=== PATIENT | male | born 1935 | race Caucasian/White ===

== ENCOUNTER 2016-05-29 10:29 | Emergency (ER) | payer MEDICARE, OTHER ==
[2016-05-29 11:06] VITALS: BP 152/67
--- NOTE | 2016-05-29 11:55 | UC ---
Nitza Bourne Anna, [facility] on 05/29/16 at 1126 . Complaint Male HPI - HPI Summary HPI Summary: MD Note Vital signs stable. Temperature 97.8 Pulse ox 98. Nondrinker. Nonsmoker. Double bypass 2004, melanoma. HTN. Type II DM. Atrial fibrillation. No allergies. Nurses Note pt c/o constipation, he cannot remember when his last BM was. pt took fleets enema this morning x1 with no results. pt denies taking OTC oral medications In Room Note Patient is an 80 y/o male coming to [facility] [place] with gradual onset of constant CONSTIPATION that began at least three days ago. At [facility] [place], he had a BM. It was not painful after it had started. It was watery and diarrhea-like to begin, then was normal with small specks of blood. Four nights ago, he had some diarrhea. He denies abdominal pain or other related symptoms. He has had constipation once before. A few hours after the enema, he had a BM. He normally has a BM every two days. His last saw his doctor 2.5 weeks ago for a normal check up. Onset: three days ago Palliative/Provocative: constipation Quality: ongoing Region: digestive system Severity: moderate Time: constant Associated Sx: None Home Rx: Fleets enema - History of Current Complaint Chief Complaint: UCAbdominalPain Stated Complaint: CONSTIPATION Time Seen by Provider: 05/29/16 11:10 Hx Obtained From: Patient Onset/Duration: Gradual Onset, Resolved - at [facility] [place] Timing: Constant, Lasting Days Severity Initially: Moderate Associated Signs And Symptoms: Positive: Constipation, Blood in Stool - Allergies/Home Medications Allergies/Adverse Reactions: Allergies Allergy/AdvReac Type Severity Reaction Status Date / Time No Known Allergies Allergy Verified 05/29/16 11:06 Home Medications: Home Medications metFORMIN* [Glucophage*] 1,000 mg PO BID 05/29/16 [History Confirmed 05/29/16] PMH/Surg Hx/FS Hx/Imm Hx Endocrine History Of: Reports: Diabetes - II Denies: Thyroid Disease Cardiovascular History Of: Reports: Cardiac Disorders - DOUBLE BYPASS 2004, Hypertension, Atrial Fibrillation Denies: Pacemaker/ICD, Myocardial Infarction Respiratory History Of: Denies: COPD, Asthma GI/ History Of: Denies: Ulcer - Surgical History Surgical History: Yes Surgery Procedure, Year, and Place: DOUBLE BYPASS 2004, MELANOMA AND LYMPH NODES REMOVED 1968, - Family History Known Family History: Positive: Cardiac Disease, Hypertension, Diabetes - Social History Occupation: Retired Lives: With Family Alcohol Use: Rare Substance Use Type: None Smoking Status (MU): Never Smoked Tobacco - Immunization History Most Recent Influenza Vaccination: fall 2015 Vaccination Up to Date: Yes Review of Systems Constitutional: Negative Skin: Negative Eyes: Negative ENT: Negative Respiratory: Negative Cardiovascular: Negative Gastrointestinal: Other - Constipation, now resolved. Some blood in stool at [facility] [place]. Genitourinary: Negative Motor: Negative Neurovascular: Negative Musculoskeletal: Negative Neurological: Negative Psychological: Negative All Other Systems Reviewed And Are Negative: Yes Physical Exam Triage Information Reviewed: Yes Appearance: Well-Appearing, No Pain Distress, Well-Nourished Vital Signs: Initial Vital Signs Temp 97.8 F 05/29/16 11:02 Pulse 67 05/29/16 11:02 Resp 20 05/29/16 11:02 BP 152/67 05/29/16 11:02 Pulse Ox 98 05/29/16 11:02 Vital Signs Reviewed: Yes Eyes: Positive: Conjunctiva Clear ENT: Positive: Hearing grossly normal, Pharynx normal, TMs normal. Negative: Muffled/hoarse voice Neck: Positive: Supple, No Lymphadenopathy Respiratory: Positive: Chest non-tender, Lungs clear, Normal breath sounds, No respiratory distress Cardiovascular: Positive: RRR, No Murmur Abdomen Description: Positive: Nontender - No tenderness at [place], [place] , or LLQ. Negative CVA tenderness., No Organomegaly, Soft Bowel Sounds: Positive: Present Musculoskeletal: Positive: Strength Intact, Other: - SAENZ Neurological: Positive: Alert Psychological: Positive: Age Appropriate Behavior Skin: Negative: rashes Complaint Male Course/Dx - Course Course Of Treatment: Discussed with pt and his current condition. Pt had a large BM while waiting and has absolutely no abd pain. I will give him instructions with respect to fluids, laxatives, fiber, and follow up. Pt understands and voiced understanding and agreement. - Differential Dx/Diagnosis Provider Diagnoses: constipation, resolved Discharge - Discharge Plan Condition: Stable Disposition: HOME Patient Education Materials: Constipation (ED), High Fiber Diet (ED) Referrals: Ghanshyam Alston MD [Primary Care Provider] - Additional Instructions: WE DISCUSSED: CONSTIPATION: Constipation is a common problem. It is especially likely as you get older. Constipation is a common cause of abdominal pain, but sometimes causes no symptoms at all. Causes of constipation include certain medications, dehydration, diets, inactivity, and low-fiber intake. Rarely, it can be a symptom of underlying disease. you can add fiber such as Metamucil, or a laxative, such as Miralax, and a stool softener such as Colace, if this happens again. Re-check at any time for repeat episode or abdominal pain or fever. The documentation as recorded by the Nitza watson Anna accurately reflects the service I personally performed and the decisions made by me, Harpal Ferraro MD.
== END 2016-05-29 11:58 | disposition home or self-care (01) ==
LOC: UCEAST 10:29
DX: K59.00 Constipation, unspecified (principal); E11.9 Type 2 diabetes mellitus without complications; Z79.84 Long term (current) use of oral hypoglycemic drugs; Z95.1 Presence of aortocoronary bypass graft
CPT/HCPCS: 99211; G0463

== ENCOUNTER 2016-12-17 10:22 | Emergency (ER) | payer MEDICARE, BC, OTHER ==
[2016-12-17 10:52] VITALS: BP 138/76
--- NOTE | 2016-12-17 10:53 | UC ---
Respiratory Complaint HPI - HPI Summary HPI Summary: 81 YEAR OLD MALE PRESENTS WITH COMPLAINS OF COUGH, POST NASAL DRIP , AND CHEST CONGESTION. - History of Current Complaint Chief Complaint: UCGeneralIllness Stated Complaint: URI Time Seen by Provider: 12/17/16 10:51 Hx Obtained From: Patient Onset/Duration: Lasting Days Severity Initially: Moderate Severity Currently: Moderate Pain Scale Used: 0-10 Numeric - 5 Character: Cough: Productive Associated Signs And Symptoms: Positive: Wheezing - Allergies/Home Medications Allergies/Adverse Reactions: Allergies Allergy/AdvReac Type Severity Reaction Status Date / Time No Known Allergies Allergy Verified 12/17/16 10:36 Home Medications: Home Medications Carbidopa-Levodopa [Carbidopa/Levodopa] 1 tab PO TID PC 12/17/16 [History Confirmed 12/17/16] PMH/Surg Hx/FS Hx/Imm Hx Previously Healthy: Yes - Surgical History Surgical History: Yes Surgery Procedure, Year, and Place: DOUBLE BYPASS 2004, MELANOMA AND LYMPH NODES REMOVED 1968, - Family History Known Family History: Positive: Cardiac Disease, Hypertension, Diabetes - Social History Alcohol Use: Occasionally Substance Use Type: None Smoking Status (MU): Never Smoked Tobacco - Immunization History Most Recent Influenza Vaccination: fall 2015 Vaccination Up to Date: Yes Review of Systems Constitutional: Negative Skin: Negative Eyes: Negative ENT: Negative Respiratory: Cough Cardiovascular: Negative Gastrointestinal: Negative Genitourinary: Negative Motor: Negative Neurovascular: Negative Musculoskeletal: Negative Neurological: Negative Psychological: Negative All Other Systems Reviewed And Are Negative: Yes Physical Exam Triage Information Reviewed: Yes Vital Signs: Initial Vital Signs Temp 36.6 C 12/17/16 10:32 Pulse 59 12/17/16 10:32 Resp 16 12/17/16 10:32 BP 138/76 12/17/16 10:32 Pulse Ox 98 12/17/16 10:32 Eye Exam: Normal ENT: Positive: Nasal congestion, Nasal drainage Dental Exam: Normal Neck exam: Normal Neck: Positive: 1 Respiratory: Positive: Wheezing Cardiovascular Exam: Normal Abdominal Exam: Normal Musculoskeletal Exam: Normal Neurological Exam: Normal Psychological Exam: Normal Skin Exam: Normal UC Diagnostic Evaluation - Laboratory O2 Sat by Pulse Oximetry: 98 Respiratory Course/Dx - Differential Dx/Diagnosis Provider Diagnoses: COUGH. NASAL CONGESTION. CHEST CONGESTION Discharge - Discharge Plan Condition: Stable Disposition: HOME Prescriptions: Amoxicillin PO (*) [Amoxicillin 875 MG (*)] 875 mg PO BID #20 tab LoraTADine TAB(NF) [Claritin 10 MG TAB(NF)] 10 mg PO DAILY #30 tab guaiFENesin/CODIEN 100MG-10MG* [Robitussin AC 100Mg-10Mg*] 5 ml PO Q6H PRN #120 ml MDD 20 ML PRN Reason: Cough Patient Education Materials: Allergic Rhinitis (ED) Referrals: Ghanshyam Alston MD [Primary Care Provider] -
== END 2016-12-17 11:12 | disposition home or self-care (01) ==
LOC: UCEAST 10:22
DX: R05 Cough (principal); R09.81 Nasal congestion; R09.89 Other specified symptoms and signs involving the circulatory and respiratory systems
CPT/HCPCS: 99212; G0463

== ENCOUNTER 2017-08-01 08:39 | Emergency (ER) | payer MEDICARE, BC, OTHER ==
[2017-08-01 08:56] VITALS: BP 143/75
--- NOTE | 2017-08-01 09:08 | UC ---
Respiratory Complaint HPI - HPI Summary HPI Summary: 81 Y/O male being seen for cough x 2 days. C/O sinus congestion with scratchy throat and post nasal drip. Denies fever, chills, nausea and vomiting. Denies dyspnea. Blood pressure elevated with history of hypertension. Compliant with medications and confirms BP with within his normal range. Medical history and medications reviewed at this visit. - History of Current Complaint Chief Complaint: UCRespiratory Stated Complaint: COUGH Time Seen by Provider: 08/01/17 08:57 Hx Obtained From: Patient Onset/Duration: Gradual Onset Pain Intensity: 0 Pain Scale Used: 0-10 Numeric Character: Cough: Productive Aggravating Factors: Allergens Alleviating Factors: Nothing Associated Signs And Symptoms: Positive: Nasal Congestion, Sinus Discomfort Related History: Seasonal Allergies - Risk Factors Pulmonary Embolism Risk Factors: Negative Cardiac Risk Factors: Hypertension Pseudomonas Risk Factors: Negative Tuberculosis Risk Factors: Negative - Allergies/Home Medications Allergies/Adverse Reactions: Allergies Allergy/AdvReac Type Severity Reaction Status Date / Time lovastatin [From Mevacor] Allergy Syncope Verified 08/01/17 08:48 Home Medications: Home Medications Atorvastatin* [Lipitor 40 MG*] 40 mg PO DAILY 08/01/17 [History Confirmed ] Levomefolate/B6/B12/Algal Oil [Metanx Capsule] 1 tab PO DAILY 08/01/17 [History Confirmed 08/01/17] guaiFENesin LIQ* [Robitussin*] 20 ml PO BID PRN 08/01/17 [History Confirmed 08/14] PMH/Surg Hx/FS Hx/Imm Hx Previously Healthy: Yes Endocrine History: Diabetes Cardiovascular History: Hypertension - Surgical History Surgical History: Yes Surgery Procedure, Year, and Place: DOUBLE BYPASS 2004, MELANOMA AND LYMPH NODES REMOVED 1968, - Family History Known Family History: Positive: Cardiac Disease, Hypertension, Diabetes - Social History Alcohol Use: Occasionally Substance Use Type: None Smoking Status (MU): Never Smoked Tobacco - Immunization History Most Recent Influenza Vaccination: fall 2015 Vaccination Up to Date: Yes Review of Systems Constitutional: Negative Skin: Negative Eyes: Negative ENT: Sinus Congestion, Sinus Pain/Tenderness Respiratory: Cough Cardiovascular: Negative Gastrointestinal: Negative Genitourinary: Negative Motor: Negative Neurovascular: Negative Musculoskeletal: Negative Neurological: Negative Psychological: Negative Is Patient Immunocompromised?: No All Other Systems Reviewed And Are Negative: Yes Physical Exam Triage Information Reviewed: Yes Appearance: Well-Appearing Vital Signs: Initial Vital Signs Temp 97.7 F 08/01/17 08:52 Pulse 86 08/01/17 08:52 Resp 16 08/01/17 08:52 BP 143/75 08/01/17 08:52 Pulse Ox 98 08/01/17 08:52 ENT Exam: Other ENT: Positive: Nasal congestion Neck exam: Normal Neck: Positive: No Lymphadenopathy Respiratory Exam: Normal Respiratory: Positive: Lungs clear Cardiovascular Exam: Normal Abdominal Exam: Normal Bowel Sounds: Positive: Present Musculoskeletal Exam: Normal Neurological Exam: Normal UC Diagnostic Evaluation - Laboratory O2 Sat by Pulse Oximetry: 98 Respiratory Course/Dx - Differential Dx/Diagnosis Differential Diagnosis/HQI/PQRI: Sinusitis Provider Diagnoses: Sinusitis Discharge - Sign-Out/Discharge Documenting (check all that apply): Discharge/Admit/Transfer - Discharge Plan Condition: Stable Disposition: HOME Patient Education Materials: Sinusitis (ED) Referrals: Ghanshyam Alston MD [Primary Care Provider] - Additional Instructions: Use Flonase as ordered. Consider taking an allergy medication such as Claratin or Zyrtec daily during allergy season. If symptoms do not improve or worsen over the next few days follow up with your primary medical provider or return to the Urgent Care. - Billing Disposition and Condition Condition: STABLE Disposition: HOME
== END 2017-08-01 09:34 | disposition home or self-care (01) ==
LOC: UCEAST 08:39
DX: J32.9 Chronic sinusitis, unspecified (principal); E11.9 Type 2 diabetes mellitus without complications; Z79.84 Long term (current) use of oral hypoglycemic drugs; I10 Essential (primary) hypertension; Z95.1 Presence of aortocoronary bypass graft; Z88.8 Allergy status to other drugs, medicaments and biological substances
CPT/HCPCS: 99212; G0463

== ENCOUNTER 2017-08-27 09:37 | Emergency (ER) | payer MEDICARE, BC ==
[2017-08-27 10:08] VITALS: BP 146/64
--- NOTE | 2017-08-27 10:31 | UC ---
Lower Extremity/Ankle HPI - HPI Summary HPI Summary: 81 yo male presents with b/l great toe pain that began 2-3 days ago. He tells me that he has an ongoing issue with ingrown toenails and sees a courtesy van driver every 3 months to get his toenails clipped as he has diabetes. Is ambulating without assistance or limp. Denies fever, chills. - History of Current Complaint Chief Complaint: UCLowerExtremity Stated Complaint: PAIN IN BOTH TOES Time Seen by Provider: 08/27/17 10:31 Hx Obtained From: Patient Severity Initially: Mild Severity Currently: Mild Pain Intensity: 3 Pain Scale Used: 0-10 Numeric Aggravating Factor(s): Standing, Ambulation Able to Bear Weight: Yes - Allergies/Home Medications Allergies/Adverse Reactions: Allergies Allergy/AdvReac Type Severity Reaction Status Date / Time lovastatin [From Mevacor] Allergy Syncope Verified 08/27/17 10:08 PMH/Surg Hx/FS Hx/Imm Hx Endocrine History: Diabetes, Dyslipidemia Cardiovascular History: Cardiac Disease Neurological History: Dementia - Surgical History Surgical History: Yes Surgery Procedure, Year, and Place: DOUBLE BYPASS 2004, MELANOMA AND LYMPH NODES REMOVED 1968, - Family History Known Family History: Positive: Cardiac Disease, Hypertension, Diabetes - Social History Occupation: Retired Lives: With Family Alcohol Use: Occasionally Substance Use Type: None Smoking Status (MU): Never Smoked Tobacco - Immunization History Most Recent Influenza Vaccination: fall 2015 Most Recent Tetanus Shot: UTD Vaccination Up to Date: Yes Review of Systems Constitutional: Negative Skin: Other - Ingrown toenail b/l great toes Respiratory: Negative Cardiovascular: Negative Neurovascular: Negative Musculoskeletal: Negative Neurological: Negative Psychological: Negative All Other Systems Reviewed And Are Negative: Yes Physical Exam - Summary Physical Exam Summary: GENERAL: NAD. WDWN. No pain distress. SKIN: LEFT great toe: NTTP. Mildly ingrown nail to medial aspect. No drainage or erythema. RIGHT great toe: ingrown nail medially. Moderate TTP. Mild erythema and edema. No drainage. NECK: Supple. Nontender. No lymphadenopathy. CHEST: No accessory muscle use. Breathing comfortably and in no distress. CV: RRR. Without m/r/g. NEURO: Alert. CN II-XII grossly intact. PSYCH: Age appropriate behavior. Triage Information Reviewed: Yes Vital Signs: Initial Vital Signs Temp 98 F 08/27/17 10:04 Pulse 59 08/27/17 10:04 Resp 18 08/27/17 10:04 BP 146/64 08/27/17 10:04 Pulse Ox 98 08/27/17 10:04 Lower Extremity Course/Dx - Course Course Of Treatment: Paronychia right toe. Keflex and f/u with courtesy van driver. - Differential Dx/Diagnosis Provider Diagnoses: Paronychia right great toe Discharge - Sign-Out/Discharge Documenting (check all that apply): Discharge/Admit/Transfer - Discharge Plan Condition: Stable Disposition: HOME Prescriptions: Cephalexin CAP* [Keflex CAP*] 500 mg PO BID #14 cap Patient Education Materials: Paronychia (ED) Referrals: Ghanshyam Alston MD [Primary Care Provider] - Additional Instructions: If you develop a fever, shortness of breath, chest pain, new or worsening symptoms - please call your PCP or go to the ED. Your blood pressure was mildly elevated at todays visit. Please see your primary provider within 4 weeks for recheck and re-evaluation. 1) Keep your follow up in 3-4 weeks with your courtesy van driver. - Billing Disposition and Condition Condition: STABLE Disposition: HOME
== END 2017-08-27 10:44 | disposition home or self-care (01) ==
LOC: UCEAST 09:37
DX: L03.031 Cellulitis of right toe (principal); M79.675 Pain in left toe(s); M79.674 Pain in right toe(s); E11.9 Type 2 diabetes mellitus without complications; Z79.84 Long term (current) use of oral hypoglycemic drugs; E78.5 Hyperlipidemia, unspecified; I51.9 Heart disease, unspecified; Z95.1 Presence of aortocoronary bypass graft; F03.90 Unspecified dementia, unspecified severity, without behavioral disturbance, psychotic disturbance, mood disturbance, and anxiety; Z82.49 Family history of ischemic heart disease and other diseases of the circulatory system; Z83.3 Family history of diabetes mellitus; Z88.8 Allergy status to other drugs, medicaments and biological substances; I25.10 Atherosclerotic heart disease of native coronary artery without angina pectoris
CPT/HCPCS: 99212; G0463

== ENCOUNTER 2018-05-26 08:22 | Emergency (ER) | payer MEDICARE, BC ==
[2018-05-26 08:29] VITALS: BP 144/61
--- NOTE | 2018-05-26 10:40 | UC ---
Respiratory Complaint HPI - HPI Summary HPI Summary: 10 DAYS OF COUGH AND CONGESTION. NO FEVER, N/V. - History of Current Complaint Chief Complaint: UCRespiratory Stated Complaint: COUGH,CHEST CONGESTION Time Seen by Provider: 05/26/18 09:33 Hx Obtained From: Patient Onset/Duration: Gradual Onset, Lasting Days, Still Present Timing: Constant Severity Initially: Mild Severity Currently: Mild Pain Intensity: 3 Pain Scale Used: 0-10 Numeric Character: Cough: Nonproductive Aggravating Factors: Nothing Alleviating Factors: Nothing Associated Signs And Symptoms: Positive: URI, Nasal Congestion. Negative: Dyspnea, Fever, Wheezing - Allergies/Home Medications Allergies/Adverse Reactions: Allergies Allergy/AdvReac Type Severity Reaction Status Date / Time lovastatin [From Mevacor] Allergy Syncope Verified 08/27/17 10:08 PMH/Surg Hx/FS Hx/Imm Hx Endocrine History: Diabetes Cardiovascular History: Cardiac Disease, Hypertension Other Neurological History: [place] - Surgical History Surgical History: Yes Surgery Procedure, Year, and Place: DOUBLE BYPASS 2004, MELANOMA AND LYMPH NODES REMOVED 1968, - Family History Known Family History: Positive: Cardiac Disease, Hypertension, Diabetes - Social History Alcohol Use: Occasionally Substance Use Type: None Smoking Status (MU): Never Smoked Tobacco - Immunization History Most Recent Influenza Vaccination: fall 2015 Most Recent Tetanus Shot: UTD Vaccination Up to Date: Yes Review of Systems All Other Systems Reviewed And Are Negative: Yes Constitutional: Positive: Negative ENT: Positive: Nasal Discharge Respiratory: Positive: Cough Cardiovascular: Positive: Negative Gastrointestinal: Positive: Negative Physical Exam Triage Information Reviewed: Yes Appearance: Well-Appearing, No Pain Distress, Well-Nourished Vital Signs: Initial Vital Signs Temp 98.7 F 05/26/18 08:25 Pulse 88 05/26/18 08:25 Resp 18 05/26/18 08:25 BP 144/61 05/26/18 08:25 Pulse Ox 100 05/26/18 08:25 Vital Signs Reviewed: Yes Eyes: Positive: Conjunctiva Clear ENT: Positive: Hearing grossly normal, Pharynx normal, TMs normal Neck: Positive: Supple, Nontender, No Lymphadenopathy Respiratory Exam: Normal Cardiovascular Exam: Normal Abdomen Description: Positive: Soft Musculoskeletal: Positive: No Edema Neurological: Positive: Alert Psychological: Positive: Age Appropriate Behavior Skin: Negative: Rashes UC Diagnostic Evaluation - Laboratory O2 Sat by Pulse Oximetry: 100 Respiratory Course/Dx - Differential Dx/Diagnosis Provider Diagnosis: Acute bronchitis Discharge - Sign-Out/Discharge Documenting (check all that apply): Patient Departure All imaging exams completed and their final reports reviewed: No Studies - Discharge Plan Condition: Stable Disposition: HOME Prescriptions: Azithromycin 500 mg PO DAILY #5 tab Patient Education Materials: Acute Bronchitis (ED) Referrals: Bev Hunter MD [Primary Care Provider] - If Needed Additional Instructions: YOUR SYMPTOMS MAY BE VIRALLY MEDIATED BUT GIVEN THE LENGTH OF TIME YOU HAVE BEEN ILL WE WILL COVER YOU WITH ANTIBIOTICS. IF YOU START THE MEDICINE BE SURE TO TAKE IT FOR THE FULL COURSE. REST, HYDRATE, OTC MEDS NEEDED. SEEK FOLLOW- UP WITH YOUR PCP IF YOU ARE NOT IMPROVING OVER THE NEXT 1-2 WEEKS. - Billing Disposition and Condition Condition: STABLE Disposition: Home
== END 2018-05-26 10:01 | disposition home or self-care (01) ==
LOC: UCEAST 08:22
DX: J20.9 Acute bronchitis, unspecified (principal); E11.9 Type 2 diabetes mellitus without complications; I10 Essential (primary) hypertension; G20 Parkinson's disease; Z88.8 Allergy status to other drugs, medicaments and biological substances
CPT/HCPCS: 99212; G0463

== ENCOUNTER 2018-09-13 03:09 | Emergency (ER) | payer MEDICARE, BC ==
--- NOTE | 2018-09-13 03:39 | ED ---
Bite Injury/Animal - HPI Summary HPI Summary: Patient is a 82 y/o M presenting to ED with complaints of a raccoon bite to middle right finger. Bite occurred today at around 0145. Raccoon had been trapped in a trap for the past two days that was placed by the patient. Patient reports that he decided to release the raccoon today. When he was releasing the raccoon, the animal bit him and escaped. notes that the finger had been bleeding after the bite, finger was washed and bandaged. He denies pain. Last tetanus shot is believed to be within the past five years ago as "part of a routine" per the patient. Patient has right arm edema but he describes this as chronic, noting that he had melanoma at right arm and lymph node removal. Home medications and allergies are reviewed. - History of Current Complaint Stated Complaint: BITE BY A RACCON PER PT Hx Obtained From: Patient, Family/Shampoo Assistant - Onset of Injury: Happened hours ago - 0145 today, Still Present Type of Bite: Wild Animal Has Animal Been Immunized?: No Severity Currently: None Pain Intensity: 0 Pain Scale Used: 0-10 Numeric Character: Abrasion/Laceration Aggravating Factor(s): Nothing Alleviating Factor(s): Nothing Associated Signs And Symptoms: Positive: Swelling - right arm, chronic - Allergies/Home Medications Allergies/Adverse Reactions: Allergies Allergy/AdvReac Type Severity Reaction Status Date / Time lovastatin [From Mevacor] Allergy Syncope Verified 09/13/18 03:13 PMH/Surg Hx/FS Hx/Imm Hx Endocrine/Hematology History: 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 Denies: Hx Thyroid Disease Cardiovascular History: Reports: Hx Angioplasty, Hx Hypertension Denies: Hx Myocardial Infarction, Hx Pacemaker/ICD Respiratory History: Denies: Hx Asthma, Hx Chronic Obstructive Pulmonary Disease (COPD) GI History: Denies: Hx Ulcer Musculoskeletal History: Reports: Hx Back Problems Sensory History: Reports: Hx Contacts or Glasses, Hx Hearing Problem - [place], slight Denies: Hx Hearing Aid Opthamlomology History: Reports: Hx Contacts or Glasses Psychiatric History: Denies: Hx Panic Disorder - Cancer History Cancer Type, Location and Year: melanoma - Surgical History Surgery Procedure, Year, and Place: DOUBLE BYPASS 2004, MELANOMA AND LYMPH NODES REMOVED 1968, Infectious Disease History: No Infectious Disease History: Denies: Hx Clostridium Difficile, Hx Hepatitis, Hx Human Immunodeficiency Virus (HIV), Hx of Known/Suspected MRSA, Hx Shingles, Hx Tuberculosis, Hx Known/ Suspected VRE, Hx Known/Suspected VRSA, History Other Infectious Disease, Traveled Outside the [place] in Last 30 Days - Family History Known Family History: Positive: Cardiac Disease, Hypertension, Diabetes - Social History Alcohol Use: Occasionally Substance Use Type: Reports: None Smoking Status (MU): Never Smoked Tobacco Review of Systems Negative: Fever - on vitals, temp is 97.5 F Positive: Edema - right arm, chronic Skin: Other - positive - right middle finger bite All Other Systems Reviewed And Are Negative: Yes Physical Exam - Summary Physical Exam Summary: VITAL SIGNS: Reviewed. GENERAL: Patient is a well-developed and nourished male who is lying comfortable in the stretcher. Patient is not in any acute respiratory distress. HEAD AND FACE: No signs of trauma. No ecchymosis, hematomas or skull depressions. No sinus tenderness. EYES: PERRLA, EOMI x 2, No injected conjunctiva, no nystagmus. EARS: Hearing grossly intact. Ear canals and tympanic membranes are within normal limits. MOUTH: Oropharynx within normal limits. NECK: Supple, trachea is midline, no adenopathy, no JVD, no carotid bruit, no c- spine tenderness, neck with full ROM CHEST: Symmetric, no tenderness at palpation LUNGS: Clear to auscultation bilaterally. No wheezing or crackles. CVS: Regular rate and rhythm, S1 and S2 present, no murmurs or gallops appreciated. ABDOMEN: Soft, non-tender. No signs of distention. No rebound no guarding, and no masses palpated. Bowel sounds are normal. EXTREMITIES: FROM in all major joints, no edema, no cyanosis or clubbing. NEURO: Alert and oriented x 3. No acute neurological deficits. Speech is normal and follows commands. SKIN: Dry and warm; 1 cm laceration over radial side of distal phalanx of right middle finger Triage Information Reviewed: Yes Vital Signs On Initial Exam: Initial Vitals Temp Pulse Resp BP Pulse Ox 97.5 F 76 16 159/95 97 09/13/18 03:11 09/13/18 03:11 09/13/18 03:11 09/13/18 03:11 09/13/18 03:11 Vital Signs Reviewed: Yes Diagnostics - Vital Signs Vital Signs Temp Pulse Resp BP Pulse Ox 09/13/18 03:11 97.5 F 76 16 159/95 97 - Laboratory Lab Statement: Any lab studies that have been ordered have been reviewed, and results considered in the medical decision making process. Bite Injury Course/Dx - Course Course Of Treatment: Patient is a 82 y/o M presenting to ED with complaints of a raccoon bite to middle right finger. Bite occurred today at around 0145. Raccoon had been trapped in a trap for the past two days that was placed by the patient. Patient reports that he decided to release the raccoon today. When he was releasing the raccoon, the animal bit him and escaped. notes that the finger had been bleeding after the bite, finger was washed and bandaged. He denies pain. Last tetanus shot is believed to be within the past five years ago as "part of a routine" per the patient. Patient has right arm edema but he describes this as chronic, noting that he had melanoma at right arm and lymph node removal. On physical exam, patient is noted to have 1 cm laceration over radial side of distal phalanx of right middle finger. During ED course, patient received augmentin 875 mg PO and rabies vaccine, 2.5 units IM and rabies immune globulin 1727 units IM. Patient will be discharged to home and follow up with health department and PCP tomorrow. He is agreeable with discharge. - Diagnoses Provider Diagnosis: Raccoon bite Discharge - Sign-Out/Discharge Documenting (check all that apply): Patient Departure - DISCHARGE Patient Received Moderate/Deep Sedation with Procedure: No - Discharge Plan Condition: Stable Disposition: HOME Prescriptions: Amoxicillin/Clavulanate TAB* [Augmentin TAB 875*] 875 mg PO BID #14 tab Patient Education Materials: Animal Bite (ED) Referrals: Bev Hunter MD [Primary Care Provider] - 3 Days Additional Instructions: FOLLOW UP WITH YOUR PRIMARY CARE PHYSICIAN AND THE HEALTH DEPARTMENT TOMORROW. CHECK YOUR LAST TETANUS SHOT DATE WITH YOUR PRIMARY CARE PHYSICIAN. YOUR NEXT RABIES SHOT SHOULD BE SEVEN DAYS FROM NOW ON 09/19/18. PLEASE RETURN TO THE ED IMMEDIATELY FOR WORSENING OR CONCERNING SYMPTOMS. - Attestation Statements Document Initiated by Scribe: Yes Documenting Scribe: MARCIAL HUTCHISON Provider For Whom Cami is Documenting (Include Credential): MALICK GUZMÁN MD Scribe Attestation: IMARCIAL, scribed for MALICK GUZMÁN MD on 09/13/18 at 0515. Status of Scribe Document: Ready
[2018-09-13] MEDS ORDERED: Amoxicillin/Clavulanate TAB* 875 MG PO ONE (03:43)
[2018-09-13] MEDS ORDERED: Rabies Immune Globulin 10 ML* 150 UNIT/ML VIAL IM ONE (03:43)
[2018-09-13] MEDS ORDERED: Rabies VIRUS VACCINE (Imovax)* 2.5 UNIT/ML 1 ML IM ONE (03:43)
[2018-09-13] MEDS ORDERED: Rabies Immune Globulin 2 ML* 150 UNITS/ML VIAL IM ONE (05:00)
[2018-09-13 05:24] VITALS: BP 149/85
== END 2018-09-13 05:23 | disposition home or self-care (01) ==
LOC: ED 03:09
DX: S61.252A Open bite of right middle finger without damage to nail, initial encounter (principal); Z23 Encounter for immunization; W55.51XA Bitten by raccoon, initial encounter; E11.9 Type 2 diabetes mellitus without complications; I10 Essential (primary) hypertension
CPT/HCPCS: 90375; 90471; 99282; A9270-GY

== ENCOUNTER 2018-10-09 14:06 | Emergency (ER) | payer MEDICARE, BC ==
--- NOTE | 2018-10-09 14:30 | ED ---
GI/ HPI - HPI Summary HPI Summary: Patient is an 82 y old M brought in by EMS to [facility] accompanied by with chief complaint of a piece of steak stuck in his throat after choking on a piece of steak 3 hours ago with a severity rated at 2/10. Symptoms alleviated by nothing. Symptoms aggravated by drinking water. Patient states he has had similar choking episodes in the past. Patient states that the choking usually stops after drinking water. Patient states that today, he tried drinking water which did not help. reports that patient was coughing up mucous and air bubbles after drinking water. As was driving patient to the hospital, patient vomited. Patient states he never saw the piece of stake come out. states that she pulled the car over at a nearby fire station and called EMS. Patient reports that in the ambulance, his symptoms resolved. - History of Current Complaint Chief Complaint: EDThroatPain Time Seen by Provider: 10/09/18 14:17 Stated Complaint: CHOKING PER EMS Hx Obtained From: Patient, Family/Timber [employer]or - Onset/Duration: Started Hours Ago Severity: Mild Current Severity: Mild Pain Intensity: 2 Associated Signs and Symptoms: Positive: Vomiting, Cough Aggravating Factor(s): Liquids Alleviating Factor(s): Nothing - Allergy/Home Medications Allergies/Adverse Reactions: Allergies Allergy/AdvReac Type Severity Reaction Status Date / Time lovastatin [From Mevacor] Allergy Syncope Verified 09/13/18 03:13 PMH/Surg Hx/FS Hx/Imm Hx Previously Healthy: No Endocrine/Hematology History: 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 Denies: Hx Thyroid Disease Cardiovascular History: Reports: Hx Angioplasty, Hx Hypertension Denies: Hx Myocardial Infarction, Hx Pacemaker/ICD Respiratory History: Denies: Hx Asthma, Hx Chronic Obstructive Pulmonary Disease (COPD) GI History: Denies: Hx Ulcer Musculoskeletal History: Reports: Hx Back Problems Sensory History: Reports: Hx Contacts or Glasses, Hx Hearing Problem - [place], slight Denies: Hx Hearing Aid Opthamlomology History: Reports: Hx Contacts or Glasses Neurological History: Reports: Other Neuro Impairments/Disorders - Parkinson's Psychiatric History: Denies: Hx Panic Disorder - Cancer History Cancer Type, Location and Year: melanoma - Surgical History Surgery Procedure, Year, and Place: DOUBLE BYPASS 2004, MELANOMA AND LYMPH NODES REMOVED 1968, Infectious Disease History: No Infectious Disease History: Denies: Hx Clostridium Difficile, Hx Hepatitis, Hx Human Immunodeficiency Virus (HIV), Hx of Known/Suspected MRSA, Hx Shingles, Hx Tuberculosis, Hx Known/ Suspected VRE, Hx Known/Suspected VRSA, History Other Infectious Disease, Traveled Outside the [place] in Last 30 Days - Family History Known Family History: Positive: Cardiac Disease, Hypertension, Diabetes - Social History Alcohol Use: Occasionally Hx Substance Use: No Substance Use Type: Reports: None Hx Tobacco Use: No Smoking Status (MU): Never Smoked Tobacco Review of Systems Positive: Cough Positive: Vomiting, Other - piece of steak stuck in his throat All Other Systems Reviewed And Are Negative: Yes Physical Exam - Summary Physical Exam Summary: VITAL SIGNS: Reviewed. GENERAL: Patient is a well-developed and nourished MALE who is lying comfortable in the stretcher. Patient is not in any acute respiratory distress. HEAD AND FACE: No signs of trauma. No ecchymosis, hematomas or skull depressions. No sinus tenderness. EYES: PERRLA, EOMI x 2, No injected conjunctiva, no nystagmus. EARS: Hearing grossly intact. Ear canals and tympanic membranes are within normal limits. MOUTH: Oropharynx within normal limits. NECK: Supple, trachea is midline, no adenopathy, no JVD, no carotid bruit, no c- spine tenderness, neck with full ROM. CHEST: Symmetric, no tenderness at palpation. LUNGS: Clear to auscultation bilaterally. No wheezing or crackles. CVS: Regular rate and rhythm, S1 and S2 present, no murmurs or gallops appreciated. ABDOMEN: Soft, non-tender. No signs of distention. No rebound, no guarding, and no masses palpated. Bowel sounds are normal. EXTREMITIES: FROM in all major joints, no edema, no cyanosis or clubbing. NEURO: Alert and oriented x 3. No acute neurological deficits. Speech is normal and follows commands. SKIN: Dry and warm. Triage Information Reviewed: Yes Vital Signs On Initial Exam: Initial Vitals Temp Pulse Resp BP Pulse Ox 97.7 F 66 18 151/87 95 10/09/18 14:15 10/09/18 14:15 10/09/18 14:15 10/09/18 14:15 10/09/18 14:15 Vital Signs Reviewed: Yes Diagnostics - Vital Signs Vital Signs Temp Pulse Resp BP Pulse Ox 10/09/18 14:15 97.7 F 66 18 151/87 95 - Laboratory Lab Statement: Any lab studies that have been ordered have been reviewed, and results considered in the medical decision making process. Re-Evaluation - Re-Evaluation First Eval Re-Evaluation Time: 14:54 Comment: Patient feels better after drinking water. Physician discusses patient discharge. Patient agrees to discharge. GIGU Course/Dx - Course Assessment/Plan: Patient reports that after he got into the emergency department he thinks that the foot follows past. Therefore the patient was given a glass of water and he drank approximately 16 ounces of water without any choking episodes. Therefore the patient will be discharged home with follow -up with PCP. Patient is hemodynamically stable alert and oriented 3 - Diagnoses Provider Diagnoses: Choking episode Discharge - Sign-Out/Discharge Documenting (check all that apply): Patient Departure - discharge Patient Received Moderate/Deep Sedation with Procedure: No - Discharge Plan Condition: Stable Disposition: HOME Patient Education Materials: Food Impaction (ED) Referrals: Bev Hunter MD [Primary Care Provider] - 3 Days Additional Instructions: Follow up with primary care provider within 3 days. Return to emergency department for any new or worsening symptoms. - Billing Disposition and Condition Condition: STABLE Disposition: Home - Attestation Statements Document Initiated by Scribe: Yes Documenting Scribe: Bryanna Gallardo Provider For Whom Cami is Documenting (Include Credential): Ronn Matthews MD Scribe Attestation: Unique Bourne Alison Kim, scribed for Ronn Matthews MD on 10/11/18 at 2009. Scribe Documentation Reviewed: Yes Provider Attestation: The documentation as recorded by the scribe, Bryanna Gallardo accurately reflects the service I personally performed and the decisions made by me, Ronn Matthews MD Status of Scribe Document: Viewed
[2018-10-09 15:10] VITALS: BP 129/69
== END 2018-10-09 15:10 | disposition home or self-care (01) ==
LOC: ED 14:06
DX: R09.89 Other specified symptoms and signs involving the circulatory and respiratory systems (principal); E11.9 Type 2 diabetes mellitus without complications; I10 Essential (primary) hypertension; Z88.8 Allergy status to other drugs, medicaments and biological substances
CPT/HCPCS: 99282

== ENCOUNTER 2019-11-29 11:02 | Inpatient (IN) ==
[2019-11-29 11:36] LABS: ABS Basophils 0.1 10^3/ul (0-0.2); ABS Eosinophils 0.1 10^3/ul (0-0.6); ABS Monocytes 0.6 10^3/ul (0-0.8); ABS Neutrophils 5.4 10^3/ul (1.5-7.7); Eosinophil % 0.9 %; Hematocrit 37 % (42-52); Lymphocyte % 24.1 %; Mean Corpuscular HGB Conc 35 g/dL (31-36); Mean Corpuscular Hemoglobin 31 pg (27-31); Mean Corpuscular Volume 88 fL (80-94); Mean Platelet Volume 7.3 fL (7.4-10.4); Platelet Count 216 10^3/uL (150-450); Red Blood Count 4.14 10^6 /uL (4.18-5.48); Red Cell Distribution Width 15 % (10-15); White Blood Count 8.1 10^3/uL (3.5-10.8)
[2019-11-29 11:57] LABS: ALT 7 U/L (7-52); AST 20 U/L (13-39); Albumin 4.3 g/dL (3.2-5.2); Albumin/Globulin Ratio 1.7 (1-3); Alkaline Phosphatase 88 U/L (34-104); Anion Gap 5 mmol/L (2-11); BUN/Creatinine Ratio 14.4 (8-20); Blood Urea Nitrogen 14 mg/dL (6-24); C Reactive Protein < 1.00 mg/L (<8.01); CO2 Carbon Dioxide 32 mmol/L (22-32); Calcium 9.8 mg/dL (8.6-10.3); Chloride 95 mmol/L (101-111); EGFR Non-African American 73.6 (>60); Globulin 2.6 g/dL (2-4); Glucose 125 mg/dL (70-100); Lipase 33 U/L (11.0-82.0); Sodium 132 mmol/L (135-145); Total Protein 6.9 g/dL (6.4-8.9)
[2019-11-29 12:07] LABS: Urine Appearance Cloudy; Urine Bilirubin Negative (Negative); Urine Blood Negative (Negative); Urine Color Yellow; Urine Glucose Negative (Negative); Urine Ketones Negative (Negative); Urine Nitrite Negative (Negative); Urine Protein Negative (Negative); Urine Specific Gravity 1.011 (1.010-1.030); Urine Urobilinogen Negative (Negative)
[2019-11-29 12:12] LABS: Urine Bacteria Absent (Absent); Urine Red Blood Cell Absent (Absent); Urine White Blood Cell 3+(>20/hpf) (Absent)
[2019-11-29] MEDS ORDERED: cefTRIAXone 1 gm/50 mL NS BAG 1 GM/50 ML BAG IV ONE (12:48)
[2019-11-29] MEDS ORDERED: Senna TAB 8.6 mg TAB PO PRN (15:55)
[2019-11-29] MEDS ORDERED: Dextrose 50% Syringe 50 ml 25 GM/50 ML SYRINGE IV PUSH PRN (16:43)
[2019-11-29] MEDS: NS 0.9% 1000 ml BAG 1,000 ML IV SCH (17:50)
[2019-11-29] MEDS: Enoxaparin 40 MG/0.4 ML SYR SUBCUT SCH (17:50)
[2019-11-29] MEDS: Ondansetron 4 mg VIAL 2 MG/ML 2 ml VIAL IV PRN (22:10)
[2019-11-29] MEDS: Carbidopa/Levodop 25/100 MG TAB PO SCH (22:10)
[2019-11-30] MEDS: NS 0.9% 1000 ml BAG 1,000 ML IV SCH ×2 (06:07→13:50)
[2019-11-30 06:08] LABS: ABS Basophils 0.1 10^3/ul (0-0.2); ABS Eosinophils 0.1 10^3/ul (0-0.6); ABS Lymphocytes 2.7 10^3/ul (1.0-4.8); ABS Monocytes 0.9 10^3/ul (0-0.8); ABS Neutrophils 5.9 10^3/ul (1.5-7.7); Eosinophil % 0.6 %; Hematocrit 34 % (42-52); Hemoglobin 12.3 g/dL (14.0-18.0); Mean Corpuscular HGB Conc 36 g/dL (31-36); Mean Corpuscular Hemoglobin 31 pg (27-31); Mean Corpuscular Volume 87 fL (80-94); Mean Platelet Volume 7.1 fL (7.4-10.4); Platelet Count 191 10^3/uL (150-450); Red Blood Count 3.92 10^6 /uL (4.18-5.48); Red Cell Distribution Width 15 % (10-15); White Blood Count 9.6 10^3/uL (3.5-10.8)
[2019-11-30 06:56] LABS: BUN/Creatinine Ratio 13.8 (8-20); Calcium 9.1 mg/dL (8.6-10.3); EGFR African American 100.9 (>60); EGFR Non-African American 83.4 (>60); HDL Cholesterol 48.3 mg/dL
[2019-11-30] MEDS: Multivitamins/Minerals TAB PO SCH (07:33)
[2019-11-30] MEDS: Aspirin EC 81 mg TAB.EC (enteric coated) PO SCH (07:33)
[2019-11-30] MEDS: Carbidopa/Levodop 25/100 MG TAB PO SCH ×3 (07:33→20:18)
[2019-11-30] MEDS: Ondansetron 4 mg VIAL 2 MG/ML 2 ml VIAL IV PRN (08:04)
[2019-11-30] MEDS: CMCS: Bicalutamide 50 mg TAB (NF) PO SCH (08:04)
[2019-11-30] MEDS ORDERED: cefTRIAXone 1 gm/50 mL NS BAG 1 GM/50 ML BAG IVPB SCH (12:00)
[2019-11-30] MEDS: Enoxaparin 40 MG/0.4 ML SYR SUBCUT SCH (16:15)
[2019-12-01] MEDS: NS 0.9% 1000 ml BAG 1,000 ML IV SCH (00:50)
[2019-12-01] MEDS: Multivitamins/Minerals TAB PO SCH (09:16)
[2019-12-01] MEDS: Aspirin EC 81 mg TAB.EC (enteric coated) PO SCH (09:16)
[2019-12-01] MEDS: Carbidopa/Levodop 25/100 MG TAB PO SCH (09:17)
[2019-12-01] MEDS: CMCS: Bicalutamide 50 mg TAB (NF) PO SCH (09:17)
[2019-12-01 10:06] VITALS: BP 163/60
== END 2019-12-01 10:44 | DRG 57 ==
LOC: MED 11:02 → ED 11:02 → MEDTELE 15:51
PROVIDERS: ADMIT Internal Medicine; ATTEND Internal Medicine

== ENCOUNTER 2019-12-01 08:36 | Inpatient (IN) ==
[2019-12-01] MEDS ORDERED: Senna TAB 8.6 mg TAB PO PRN (11:17)
[2019-12-01] MEDS ORDERED: Dextrose 50% Syringe 50 ml 25 GM/50 ML SYRINGE IV PUSH PRN (11:29)
[2019-12-01] MEDS: Carbidopa/Levodop 25/100 MG TAB PO SCH ×2 (14:23→20:35)
[2019-12-01] MEDS: Enoxaparin 40 MG/0.4 ML SYR SUBCUT SCH (17:49)
[2019-12-02 06:06] LABS: ABS Basophils 0.1 10^3/ul (0-0.2); ABS Eosinophils 0.2 10^3/ul (0-0.6); ABS Lymphocytes 2.2 10^3/ul (1.0-4.8); ABS Neutrophils 5.8 10^3/ul (1.5-7.7); Eosinophil % 2.5 %; Hematocrit 34 % (42-52); Hemoglobin 12.1 g/dL (14.0-18.0); Lymphocyte % 23.5 %; Mean Corpuscular HGB Conc 35 g/dL (31-36); Mean Corpuscular Hemoglobin 31 pg (27-31); Mean Corpuscular Volume 89 fL (80-94); Mean Platelet Volume 7.3 fL (7.4-10.4); Platelet Count 188 10^3/uL (150-450); Red Blood Count 3.89 10^6 /uL (4.18-5.48); Red Cell Distribution Width 15 % (10-15); White Blood Count 9.1 10^3/uL (3.5-10.8)
[2019-12-02 06:14] LABS: Albumin 3.7 g/dL (3.2-5.2); Albumin/Globulin Ratio 1.7 (1-3); BUN/Creatinine Ratio 15.5 (8-20); Calcium 9.1 mg/dL (8.6-10.3); EGFR African American 105.1 (>60); EGFR Non-African American 86.8 (>60); Globulin 2.2 g/dL (2-4); Potassium 3.6 mmol/L (3.5-5.0); Total Bilirubin 0.7 mg/dL (0.2-1.0); Total Protein 5.9 g/dL (6.4-8.9)
[2019-12-02] MEDS: Aspirin EC 81 mg TAB.EC (enteric coated) PO SCH (08:10)
[2019-12-02] MEDS: Carbidopa/Levodop 25/100 MG TAB PO SCH ×3 (08:10→19:57)
[2019-12-02] MEDS: BICALUTAMIDE 50 MG PO SCH (08:12)
[2019-12-02] MEDS: Enoxaparin 40 MG/0.4 ML SYR SUBCUT SCH (17:43)
[2019-12-03 05:45] VITALS: BP 140/60
[2019-12-03] MEDS: Aspirin EC 81 mg TAB.EC (enteric coated) PO SCH (09:00)
[2019-12-03] MEDS: Carbidopa/Levodop 25/100 MG TAB PO SCH (09:00)
[2019-12-03] MEDS: BICALUTAMIDE 50 MG PO SCH (09:01)
== END 2019-12-03 12:00 | disposition home or self-care (01) | DRG 57 ==
LOC: PMRU 10:44
PROVIDERS: ADMIT Physical Medicine & Rehabilitation; ATTEND Physical Medicine & Rehabilitation

== ENCOUNTER 2020-04-20 19:06 | Observation (INO) ==
[2020-04-20] MEDS ORDERED: NS 0.9% 1000 ml BAG 1,000 ML IV ONE (20:05)
[2020-04-20 21:20] LABS: ABS Lymphocytes 1.1 10^3/ul (1.0-4.8); ABS Monocytes 0.6 10^3/ul (0-0.8); ABS Neutrophils 8.8 10^3/ul (1.5-7.7); Eosinophil % 0.2 %; Hematocrit 37 % (42-52); Hemoglobin 12.7 g/dL (14.0-18.0); Lymphocyte % 10.7 %; Mean Corpuscular HGB Conc 35 g/dL (31-36); Mean Corpuscular Hemoglobin 31 pg (27-31); Mean Corpuscular Volume 88 fL (80-94); Mean Platelet Volume 6.9 fL (7.4-10.4); Platelet Count 223 10^3/uL (150-450); Red Blood Count 4.14 10^6 /uL (4.18-5.48); Red Cell Distribution Width 14 % (10-15); White Blood Count 10.6 10^3/uL (3.5-10.8)
[2020-04-20 21:31] LABS: ALT 6 U/L (7-52); AST 17 U/L (13-39); Albumin 4.1 g/dL (3.2-5.2); Albumin/Globulin Ratio 1.5 (1-3); Alkaline Phosphatase 101 U/L (34-104); Anion Gap 7 mmol/L (2-11); Blood Urea Nitrogen 16 mg/dL (6-24); CO2 Carbon Dioxide 29 mmol/L (22-32); Chloride 96 mmol/L (101-111); Cholesterol 118 mg/dL; EGFR African American 105.1 (>60); EGFR Non-African American 86.8 (>60); Globulin 2.7 g/dL (2-4); Glucose 152 mg/dL (70-100); LDL Cholesterol 51 mg/dL; Potassium 4.3 mmol/L (3.5-5.0); Sodium 132 mmol/L (135-145); Total Protein 6.8 g/dL (6.4-8.9); Triglycerides 78 mg/dL
[2020-04-20 21:33] LABS: INR 1.06 (0.82-1.09)
[2020-04-20 21:36] LABS: Troponin I 0.03 ng/mL (<0.03)
[2020-04-20] MEDS ORDERED: Iodixanol (CONTRAST) 320 MG/ML 100 ML SDV IV ONE (21:38)
[2020-04-20 21:47] LABS: Calcium 9.2 mg/dL (8.6-10.3)
[2020-04-20 21:50] LABS: Urine Appearance Cloudy; Urine Bilirubin Negative (Negative); Urine Blood 1+ (Negative); Urine Color Yellow; Urine Glucose Negative (Negative); Urine Ketones Negative (Negative); Urine Nitrite Negative (Negative); Urine Protein Negative (Negative); Urine Specific Gravity 1.012 (1.010-1.030); Urine Urobilinogen Negative (Negative)
[2020-04-20 22:05] LABS: Urine Bacteria 1+ (Absent); Urine Granular Casts Present (Absent); Urine Red Blood Cell 2+(6-10/hpf) (Absent); Urine White Blood Cell 3+(>20/hpf) (Absent)
[2020-04-20] MEDS ORDERED: Ondansetron 4 mg VIAL 2 MG/ML 2 ml VIAL IV PRN (22:18)
[2020-04-20] MEDS ORDERED: Piperacillin/Tazobac ADVAN 3.375 GM in NS 0.9% 100 ml BAG 100 ML IV ONE (23:21)
[2020-04-20] MEDS ORDERED: Dextrose 50% Syringe 50 ml 25 GM/50 ML SYRINGE IV PUSH PRN (23:41)
[2020-04-20] MEDS ORDERED: Zosyn per Pharmacy NOTE FOLLOW UP SCH (23:45)
[2020-04-21 02:11] LABS: Mean Platelet Volume 6.9 fL (7.4-10.4); Platelet Count 228 10^3/uL (150-450)
[2020-04-21] MEDS: Heparin 5000 UNITS/ML 1 mL VIAL SUBCUT SCH ×2 (05:51→14:09)
[2020-04-21 05:59] LABS: ABS Basophils 0.1 10^3/ul (0-0.2); ABS Lymphocytes 1.4 10^3/ul (1.0-4.8); ABS Neutrophils 11.4 10^3/ul (1.5-7.7); Eosinophil % 0.1 %; Hematocrit 38 % (42-52); Lymphocyte % 9.9 %; Mean Corpuscular HGB Conc 35 g/dL (31-36); Mean Corpuscular Hemoglobin 31 pg (27-31); Mean Corpuscular Volume 89 fL (80-94); Mean Platelet Volume 7.2 fL (7.4-10.4); Platelet Count 226 10^3/uL (150-450); Red Blood Count 4.23 10^6 /uL (4.18-5.48); Red Cell Distribution Width 14 % (10-15); White Blood Count 13.9 10^3/uL (3.5-10.8)
[2020-04-21 06:15] LABS: BUN/Creatinine Ratio 17.4 (8-20); Calcium 9.2 mg/dL (8.6-10.3); EGFR African American 102.3 (>60); EGFR Non-African American 84.5 (>60)
[2020-04-21] MEDS: [UNRECOGNIZED DRUG - OTHER] PO SCH ×2 (07:48→09:20)
[2020-04-21] MEDS: Aspirin EC 81 mg TAB.EC (enteric coated) PO SCH ×2 (07:48→09:18)
[2020-04-21] MEDS: Carbidopa/Levodop 25/100 MG TAB PO SCH ×4 (07:48→14:09)
[2020-04-21] MEDS ORDERED: ZOSYN 3.375 GM Q8H per EXTENDED INFUSION IV SCH (08:00)
[2020-04-21 11:29] VITALS: BP 156/65
[2020-04-21] MEDS ORDERED: CALCIUM CARBONATE VITAMIN D3 PO SCH (12:00)
[2020-04-21] MEDS ORDERED: Magnesium CITRATE LIQ 300 ML BTL PO ONE (13:30)
[2020-04-21] MEDS ORDERED: Carbidopa/Levodop CR 50/200 TAB.CR PO SCH (20:00)
[2020-04-21] MEDS ORDERED: Sulfamethox/Trimethoprim DS TAB 800/160 mg PO SCH (21:00)
== END 2020-04-21 14:46 | disposition home or self-care (01) ==
LOC: MEDTELE 19:06 → ED 19:06 → MEDTELE 04-21 00:40
PROVIDERS: ADMIT Student in an Organized Health Care Education/Training Program; ATTEND Internal Medicine

== ENCOUNTER 2022-11-21 07:57 | Inpatient (IN) ==
[2022-11-21] MEDS ORDERED: NS 0.9% 1000 ml BAG 1,000 ML IV ONE (08:55)
[2022-11-21] MEDS ORDERED: Pantoprazole VIAL 40 MG VIAL IV ONE (08:58)
[2022-11-21 10:05] LABS: Hematocrit 38.6 % (38-53); Hemoglobin 13.1 g/dL (13.2-16.3); Mean Corpuscular Hemoglobin 30.6 pg (27-33); Mean Corpuscular Hgb Conc 34.1 g/dL (31-36); Mean Corpuscular Volume 89.8 fL (80-97); Mean Platelet Volume 7.5 fL (7.5-11.2); Platelet Count 267 10^3/uL (150-450); Red Blood Count 4.29 10^6/uL (4.06-5.63); Red Cell Distribution Width 15.5 % (12-17); White Blood Count 23.3 10^3/uL (3.6-10.2)
[2022-11-21 10:25] LABS: Activated Partial Thrombo Time 29.2 seconds (26.0-38.0)
[2022-11-21 10:28] LABS: Albumin/Globulin Ratio 1.4 (1-3); Creatinine, Serum 0.93 mg/dL (0.67-1.17); Globulin 2.9 g/dL (2-4); HDL Cholesterol 46.1 mg/dL; Potassium 3.9 mmol/L (3.5-5.0); Total Protein 6.9 g/dL (6.4-8.9)
[2022-11-21] MEDS ORDERED: Iodixanol (CONTRAST) 320 MG/ML 100 ML SDV IV ONE (10:32)
[2022-11-21 10:54] LABS: High Sensitivity Troponin 1 Hr 7 pg/mL (<20)
[2022-11-21 10:56] LABS: ABS Lymphocytes 0.7 10^3/uL (1.0-4.8); ABS Monocytes 1.8 10^3/uL (0.0-1.1); ABS Neutrophils 20.7 10^3/uL (1.5-7.6); ABS Nucleated RBC 0.02 10^3/ul; Lymphocyte % 3.2 %; Nucleated Red Blood Cells % 0.1 /100 WBC (0.0-0.4)
[2022-11-21 12:07] LABS: Urine Appearance Clear; Urine Bilirubin Negative (Negative); Urine Blood Negative (Negative); Urine Color Yellow; Urine Glucose Negative (Negative); Urine Ketones 1+ (Negative); Urine Nitrite Negative (Negative); Urine Protein Negative (Negative); Urine Specific Gravity 1.026 (1.002-1.030); Urine Urobilinogen Negative (Negative)
[2022-11-21] MEDS ORDERED: Piperacillin/Tazobac 3.375 BAG 3.375 GM/100 ML BAG IV ONE (12:57)
[2022-11-21] MEDS ORDERED: Sulfur Hexaflouride MICROSPHR 25 MG VIAL ONE (13:08)
[2022-11-21 14:39] LABS: C Reactive Protein 8.02 mg/L (<8.01)
[2022-11-21 17:59] LABS: Hematocrit 35.6 % (38-53); Hemoglobin 12.1 g/dL (13.2-16.3)
[2022-11-21] MEDS: Carbidopa/Levodop 25/100 MG TAB PO SCH ×2 (18:38→21:37)
[2022-11-21] MEDS ORDERED: cefTRIAXone 1 gm/50 mL D5W 1 GM/50 ML BAG IV SCH (18:45)
[2022-11-21] MEDS ORDERED: Dextrose 50% Syringe 50 ml 25 GM/50 ML SYRINGE IV PUSH PRN (19:10)
[2022-11-21] MEDS: Pantoprazole VIAL 40 MG VIAL IV SCH (21:36)
[2022-11-21] MEDS: Carbidopa/Levodop CR 50/200 TAB.CR PO SCH (21:37)
[2022-11-21] MEDS: Lactated Ringers 1000 ml BAG 1,000 ML IV SCH (22:43)
[2022-11-22 06:40] LABS: Hematocrit 32.1 % (38-53); Mean Corpuscular Hemoglobin 30.7 pg (27-33); Mean Corpuscular Hgb Conc 34.2 g/dL (31-36); Mean Corpuscular Volume 89.7 fL (80-97); Mean Platelet Volume 7.5 fL (7.5-11.2); Platelet Count 224 10^3/uL (150-450); Red Blood Count 3.58 10^6/uL (4.06-5.63); Red Cell Distribution Width 15.2 % (12-17); White Blood Count 14.8 10^3/uL (3.6-10.2)
[2022-11-22 06:54] LABS: Calcium 8.4 mg/dL (8.6-10.3); Creatinine, Serum 0.85 mg/dL (0.67-1.17); Magnesium 1.5 mg/dL (1.9-2.7); Potassium 3.6 mmol/L (3.5-5.0); eGFR CKD-EPI 83.6 (>60)
[2022-11-22] MEDS ORDERED: Aspirin EC 81 mg TAB.EC (enteric coated) PO SCH (09:00)
[2022-11-22] MEDS: Pantoprazole VIAL 40 MG VIAL IV SCH ×2 (11:05→22:07)
[2022-11-22] MEDS: Carbidopa/Levodop 25/100 MG TAB PO SCH ×5 (11:09→22:07)
[2022-11-22] MEDS: Lactated Ringers 1000 ml BAG 1,000 ML IV SCH (11:34)
[2022-11-22] MEDS: Carbidopa/Levodop CR 50/200 TAB.CR PO SCH ×2 (22:01→22:09)
[2022-11-23 06:26] LABS: ABS Eosinophils 0.1 10^3/uL (0.0-0.5); ABS Lymphocytes 1.8 10^3/uL (1.0-4.8); ABS Neutrophils 8.8 10^3/uL (1.5-7.6); Eosinophil % 0.9 %; Hematocrit 32.8 % (38-53); Hemoglobin 11.3 g/dL (13.2-16.3); Lymphocyte % 15.1 %; Mean Corpuscular Hemoglobin 30.6 pg (27-33); Mean Corpuscular Hgb Conc 34.5 g/dL (31-36); Mean Corpuscular Volume 88.7 fL (80-97); Mean Platelet Volume 7.7 fL (7.5-11.2); Platelet Count 223 10^3/uL (150-450); Red Cell Distribution Width 15.4 % (12-17); White Blood Count 11.7 10^3/uL (3.6-10.2)
[2022-11-23 06:44] LABS: Calcium 8.6 mg/dL (8.6-10.3); Creatinine, Serum 0.74 mg/dL (0.67-1.17); Potassium 3.7 mmol/L (3.5-5.0); eGFR CKD-EPI 87.2 (>60)
[2022-11-23] MEDS: Pantoprazole VIAL 40 MG VIAL IV SCH ×2 (10:30→21:07)
[2022-11-23] MEDS: Carbidopa/Levodop 25/100 MG TAB PO SCH ×4 (10:30→21:09)
[2022-11-23] MEDS ORDERED: Ondansetron 4 mg VIAL 2 MG/ML 2 ml VIAL IV PRN (18:10)
[2022-11-23] MEDS: Carbidopa/Levodop CR 50/200 TAB.CR PO SCH (21:07)
[2022-11-24 06:51] LABS: ABS Basophils 0.1 10^3/uL (0.0-0.1); ABS Eosinophils 0.1 10^3/uL (0.0-0.5); ABS Lymphocytes 2.1 10^3/uL (1.0-4.8); ABS Monocytes 0.9 10^3/uL (0.0-1.1); ABS Neutrophils 6.7 10^3/uL (1.5-7.6); Eosinophil % 1.4 %; Hematocrit 31.9 % (38-53); Hemoglobin 11.1 g/dL (13.2-16.3); Lymphocyte % 21.1 %; Mean Corpuscular Hgb Conc 34.8 g/dL (31-36); Mean Platelet Volume 7.5 fL (7.5-11.2); Platelet Count 230 10^3/uL (150-450); Red Blood Count 3.59 10^6/uL (4.06-5.63); Red Cell Distribution Width 15.1 % (12-17)
[2022-11-24 07:07] LABS: Calcium 8.7 mg/dL (8.6-10.3); Creatinine, Serum 0.78 mg/dL (0.67-1.17); Potassium 3.6 mmol/L (3.5-5.0); eGFR CKD-EPI 85.8 (>60)
[2022-11-24] MEDS: Pantoprazole VIAL 40 MG VIAL IV SCH ×2 (09:28→21:19)
[2022-11-24] MEDS: Carbidopa/Levodop 25/100 MG TAB PO SCH ×4 (09:29→21:24)
[2022-11-24] MEDS: Carbidopa/Levodop CR 50/200 TAB.CR PO SCH (21:26)
[2022-11-25 05:54] LABS: ABS Eosinophils 0.2 10^3/uL (0.0-0.5); ABS Lymphocytes 2.3 10^3/uL (1.0-4.8); ABS Neutrophils 5.3 10^3/uL (1.5-7.6); ABS Nucleated RBC 0.01 10^3/ul; Eosinophil % 2.6 %; Hematocrit 33.3 % (38-53); Hemoglobin 11.7 g/dL (13.2-16.3); Lymphocyte % 26.1 %; Mean Corpuscular Hemoglobin 31.1 pg (27-33); Mean Corpuscular Hgb Conc 35.2 g/dL (31-36); Mean Corpuscular Volume 88.2 fL (80-97); Mean Platelet Volume 7.4 fL (7.5-11.2); Nucleated Red Blood Cells % 0.1 /100 WBC (0.0-0.4); Platelet Count 245 10^3/uL (150-450); Red Blood Count 3.77 10^6/uL (4.06-5.63); Red Cell Distribution Width 15.3 % (12-17); White Blood Count 8.8 10^3/uL (3.6-10.2)
[2022-11-25 06:11] LABS: Calcium 8.9 mg/dL (8.6-10.3); Creatinine, Serum 0.77 mg/dL (0.67-1.17); Potassium 3.6 mmol/L (3.5-5.0); eGFR CKD-EPI 86.1 (>60)
[2022-11-25] MEDS: Pantoprazole VIAL 40 MG VIAL IV SCH (09:11)
[2022-11-25] MEDS: Carbidopa/Levodop 25/100 MG TAB PO SCH ×2 (09:11→12:51)
[2022-11-25 12:37] VITALS: BP 134/64
== END 2022-11-25 14:30 | DRG 178 ==
LOC: ED 07:57 → SUATTDRO 12:43 → EDHOLD 12:43 → MEDTELE 17:23
PROVIDERS: ADMIT Internal Medicine; ATTEND Internal Medicine